=== PATIENT | female | born 1980 | race Two or more races ===

== ENCOUNTER 2021-06-04 09:27 | Emergency (ER) | payer OTHER, SELFPAY ==
[2021-06-04 10:03] VITALS: BP 141/105; PULSE 86; RESP 18; TEMP 36.9; O2SAT 99; BMI 19.3
--- NOTE | 2021-06-04 10:31 | HMH.EDUTC ---
[facility] Dis[facility] Clinical Impression: Diarrhea Qualifiers: Diarrhea type: unspecified type Qualified Code(s): R19.7 - Diarrhea, unspecified Disposition: Home, Self-Care Condition on Discharge: Good Instructions: Diarrhea, Loperamide, DI for COVID-19 (Suspected or Confirmed ), Preventing the Spread of Coronavirus Discharge Instructions Additional Instructions: Drink extra fluids with and between meals. If you have difficulty drinking, try very small amounts of water or suck on ice chips. ? Avoid fruit juices, as these do not replace minerals and can actually increase diarrhea. ? Children and adults can use sports drinks to replenish electrolytes. Younger children and infants should use products formulated for children, like oral rehydration solutions. ? Eat food in small amounts and let your stomach recover. ? Get lots of rest. You may feel tired or weak. ? No greasy or fried foods for the next 24-48 hours BRAT diet Bananas Rice Apples and [place] ? Make sure to drink plenty of liquids ? Return if needed ? Straight to ER if any life threatening symptoms ? You was given an outpatient order for diarrhea panel, please collect specimen and bring back to outpatient lab then call back to the [facility] or follow up with family doctor for results ? Follow up with family doctor in the next 48-72 hours if no improvement or any worsening of symptoms Referrals: Provider,Referral, MD [Primary Care Provider] - As needed Time of Disposition: 11:02 Medical Decision Making - Sunny Inquiry Pt receiving controlled substance: No Sunny was queried for this patient: No Vital Signs: 06/04/21 10:03 06/04/21 10:43 Temperature 98.4 F 98.4 F Temperature Source Oral Pulse Rate 89 Pulse Rate [Left] 86 Respiratory Rate 18 18 Blood Pressure 141/105 H Blood Pressure [Right Arm] 141/105 H Blood Pressure Mean [Right Arm] 117 02 Sat by Pulse Oximetry 99 - Lab Data Lab Results 06/04/21 10:20: Strep Scn Rapid Clinic Negative Orders (Tests/Meds): ORDERS Category Date Time Status Covid-19 Nasal PCR ([facility]) Routine Lab 06/04/21 10:40 Received Strep Screen Confirmation Stat Micro 06/04/21 10:20 Received Medical Decision Narrative: Discussed blood pressure with patient and declined treatment at this time States that she is stress and aggravated due to the diarrhea and cramping States that she will follow up with her PCP for further evaluation and treatment if it continues to remain elevated [facility] H[place] - General Stated complaint: Cough, diarrhea Time Seen by Provider: 06/04/21 10:31 Mode of Arrival: Ambulatory Source of Information: Patient Limitations: No Limitations Description of Symptoms (Recalled from Triage Doc. by RN): pt states she is feeling weak and has diarhea ongoing since 05/28. she states she had a sore throat and cough in the begining. HEENT Symptoms (Recalled from RN notes): Yes (sore throat) Resp Symptoms (Recalled from RN notes): Yes (cough) Skin Symptoms (Recalled from RN notes): No MS Symptoms (Recalled from RN notes): No Functional Status (Recalled from RN notes): na - History of Present Illness Provider Complaint: Patient state that she started not feeling well around the States that she started with sore scratchy throat and cough then she started having body aches and diarrhea States that she has continued to have diarrhea on and off since States that she was up most of the night last night with diarrhea so today she came in to get checked - Related Data Allergies Allergy/AdvReac Type Severity Reaction Status Date / Time Penicillins Allergy Verified 06/04/21 10:33 Sulfa (Sulfonamide Allergy Verified 06/04/21 10:33 Antibiotics) - Worker's Comp Is this a Worker's Comp case?: No [facility] History - Hepatitis A Screen Drug use history?: Yes High risk sexual behaviors?: No History of sexually transmitted infection?: No Currently employed?: No Childcare worker?: No Do you have indoor plumbing
[2021-06-04 10:37] LABS: UTC Strep Screen (Rapid) Negative (Negative)
[2021-06-04 10:43] VITALS: BP 141/105; PULSE 89; RESP 18; TEMP 36.9
[2021-06-04 10:58] LABS: Adenovirus F 40/41, stool Not Detected (NotDetected); Astrovirus Not Detected (NotDetected); Campylobacter Not Detected (NotDetected); Cyclospora Cayetanesis Not Detected (NotDetected); Entamoeba histolytica Not Detected (NotDetected); Enteroaggregative E coli Not Detected (NotDetected); Enteropathogenic E coli Not Detected (NotDetected); Enterotoxigenic E coli Not Detected (NotDetected); Giardia lamblia Not Detected (NotDetected); Norovirus Not Detected (NotDetected); Plesimonas Shigalloides, PCR Not Detected (NotDetected); Rotavirus A Not Detected (NotDetected); Salmonella, PCR Not Detected (NotDetected); Sapovirus Not Detected (NotDetected); Shiga-like toxin E coli Not Detected (NotDetected); Shigella Enterovasive E coli Not Detected (NotDetected); Vibrio Cholerae Not Detected (NotDetected); Vibrio, PCR Not Detected (NotDetected); Yersinia Entercolitica, PCR Not Detected (NotDetected)
[2021-06-07 17:09] LABS: Clostridium Difficile A/B, PCR Detected (NotDetected); Cryptosporidium Detected (NotDetected)
== END 2021-06-04 11:18 | disposition home or self-care (01) ==
PROVIDERS: Emergency Provider Nurse Practitioner
DX: A04.72 Enterocolitis due to Clostridium difficile, not specified as recurrent (principal); R19.7 Diarrhea, unspecified; U07.1 COVID-19
CPT/HCPCS: 87507; 87880; 99203; C9803; G0463; U0003; U0005